=== PATIENT | female | born 1935 | race Asian ===

== ENCOUNTER 2016-11-22 14:40 | Outpatient (RCR) | payer OTHER | END 2016-11-29 | disposition home or self-care (01) | LOC: PTY 14:40 | PROVIDERS: ATTEND Internal Medicine | DX: R26.9 Unspecified abnormalities of gait and mobility (principal); Z91.81 History of falling ==

== ENCOUNTER 2016-12-21 14:25 | Outpatient (RCR) | payer OTHER | END 2016-12-30 | disposition home or self-care (01) | LOC: PTY 14:25 | PROVIDERS: ATTEND Internal Medicine | DX: R26.9 Unspecified abnormalities of gait and mobility (principal); Z91.81 History of falling ==

== ENCOUNTER 2017-01-27 15:30 | Outpatient (RCR) | payer OTHER | END 2017-01-29 | disposition home or self-care (01) | LOC: PTY 15:30 | PROVIDERS: ATTEND Internal Medicine | DX: R26.9 Unspecified abnormalities of gait and mobility (principal); Z91.81 History of falling ==

== ENCOUNTER 2017-02-23 16:00 | Outpatient (RCR) | payer OTHER | END 2017-03-01 | disposition home or self-care (01) | LOC: PTY 16:00 | PROVIDERS: ATTEND Internal Medicine | DX: Z91.81 History of falling (principal); R26.9 Unspecified abnormalities of gait and mobility ==